=== PATIENT | female | born 1960 | race Caucasian/White ===

== ENCOUNTER → 2016-12-31 | Outpatient (CLI) | payer OTHER ==
[~2016-12-31] MED LIST: /CELE20CA OR; /PANT40TA PO; AMIT25TA2 OR; ARTHROTEC PO; CELE-19 PO; DICLOFENAC PO; DULO20CA OR; HYDR-3713 PO; HYDR7.5T38 PO; IBUP800T OR; LIDO5DIS TD; NABU500T OR; NAPR500T2 PO; OXAPROZIN PO; TRAM50TA2 PO; ULTRTA OR; VIACTIV CALCIUM OR; VITAMIN B COMPLE1 OR; VOLT1GEL EXT; XANA0.25 PO; omega 3 OR; vit c OR; vit d3 OR
--- NOTE | 2017-01-10 00:52 | ECWPNPC ---
PATIENT NAME: JOHNNY WEATHERS : 1960 GENDER: FEMALE VISIT DATE: 12/31/2016 DISCHARGE DATE: 12/31/16 0939 VISIT LOCKED DATE TIME: PHYSICIAN: RHEA LUCAS RESOURCE: RHEA LUCAS REASON FOR APPOINTMENT 1. FOLLOW UP HISTORY OF PRESENT ILLNESS HISTORY OF PRESENT ILLNESS: PAIN THE PATIENT DESCRIBES THE PAIN... THE PATIENT DESCRIBES THE PAIN... THE PATIENT DESCRIBES THE PAIN... HERE FOR ROUTINE F/U AND MANAGEMENT OF CHRONIC LBP. HISTORY OF WORK RELATED INJURY . CURRENTLY USING CYMBALTA 60MG DAILY. RARE USE OF HYDROCODONE 5/325 PRN FOR SEVERE PAIN. LAST USE OF HYDROCODONE LAST WEEK FOR SEVERE FLARE UP RIGHT LOW BACK.CONTINUES TO BENEFIT FROM LEFT SIJ INJECTION DONE IN JANUARY.RATING PAIN VAS 6/10.DIAGNOSED WITH LUPUS THIS PAST MARCH AND PLACED ON PREDNISONE 5MG DAILY.HAD TO STOP CELEBREX DUE TO GI UPSET WITH PREDNISONE. FALL RISK SCREENING: SCREENING :NO FALLS IN THE PAST YEAR CURRENT MEDICATIONS TAKING PROTONIX 40 MG TABLET DELAYED RELEASE 1 TABLET ORALLY ONCE A DAY TAKING VITAMIN B COMPLEX TABLET ORALLY DAILY TAKING OMEGA 3 1000 MG CAPSULE 1 CAPSULE ORALLY ONCE A DAY TAKING VITAMIN C 1000 MG TABLET 1 TABLET ORALLY ONCE A DAY TAKING PREDNISOLONE 5 MG TABLET ORALLY DAILY TAKING BUPROPION HCL 300 MG TABLET 1 TABLET ORALLY ONCE A DAY TAKING ALPRAZOLAM 0.25 MG TABLET 1 TABLET ORALLY PRN DAILY TAKING LIDOCAINE 5 % PATCH 1 PATCH TO INTACT SKIN REMOVE AFTER 12 HOURS EXTERNALLY ONCE A DAY ON 12H OFF 12H TAKING CYMBALTA 60 MG CAPSULE DELAYED RELEASE PARTICLES 1 CAPSULE ORALLY ONCE A DAY NOT-TAKING TURMERIC CURCUMIN CAPSULE 1000 MG ORALLY DAILY NOT-TAKING HYDROCODONE-ACETAMINOPHEN 5-325 MG TABLET 1 TABLET NEEDED ORALLY EVERY 6 HRS MDD3, NOTES: 01/18/16 1400 NOT-TAKING TUMERSAID 1000 MG TABLET 1 TAB(S) ORALLY DAILY MEDICATION LIST REVIEWED AND RECONCILED WITH THE PATIENT PAST MEDICAL HISTORY 2003 FALL RESULTING IN BACK AND RIGHT LEG PAIN ALLERGIES N.K.D.A. SOCIAL HISTORY GENERAL: PAIN CLINIC PFS, CLERGY, PUBLIC HEALTH REFERRALS CLERGY REFERRAL NEEDED?NO WAS THE PROVIDER NOTIFIED OF ANY PERTINENT INFO?NO PFS REFERRAL NEEDED?NO PUBLIC HEALTH REFERRAL NEEDED?NO PATIENT: ____. REVIEW OF SYSTEMS CONSTITUTIONAL: ANY CHANGE IN YOUR MEDICAL CONDITION? NO . CHILLS NO . FEVER NO . INFECTION: DO YOU HAVE NEW INFECTIONS? NO . DO YOU HAVE HISTORY OF MRSA? NO . MUSCULOSKELETAL: ANY NEW PATTERNS OF PAIN OR NUMBNESS? NO . GASTROENTEROLOGY: ANY NEW CHANGE IN BOWEL CONTROL? NO . GENITOURINARY: ANY NEW CHANGE IN BLADDER CONTROL? NO . IS THERE A CHANCE YOU COULD BE ? NO . HEMATOLOGY/LYMPH: DO YOU TAKE ANY BLOOD THINNERS? (FOR EXAMPLE- COUMADIN, PLAVIX, AGGRENOX, PLATEL, PRADAXA, OR XARELTO) NO . WHEN WAS YOUR LAST DOSE? DATE: TIME: . NEUROLOGY: HAVE YOU FALLEN IN THE PAST 6 MONTHS? NO . ANY NEW EXTREMITY NUMBNESS OR WEAKNESS? NO . CARDIOLOGY: DO YOU HAVE A PACEMAKER OR DEFIBRILLATOR? NO . RESPIRATORY: HAVE YOU BEEN SICK IN THE PAST WEEK? NO . FEVER NO . FLU LIKE SYMPTOMS? NO . COUGH NO . INTEGUMENTARY: DO YOU HAVE ANY RASHES OR OPEN SORES? NO . ALLERGIC/IMMUNO: ARE YOU ALLERGIC TO SHELLFISH OR IV DYE? NO . ANY NEW ALLERGIES? NO . PSYCHIATRIC: DO YOU HAVE THOUGHTS OF HURTING YOURSELF OR SOMEONE ELSE? NO . ARE YOU ABUSED, NEGLECTED, OR IN AN UNSAFE ENVIRONMENT? NO . ENDOCRINOLOGY: ARE YOU DIABETIC? NO . OTHER: DO YOU NEED ANY PRESCRIPTIONS? NO . IF YES, PLEASE LIST: ____ . ANY NEW PROBLEMS WITH YOUR MEDICATIONS? NO . WHEN DID YOU LAST EAT? ____ . WHEN DID YOU LAST DRINK? ____ . WHAT DID YOU LAST DRINK? ____ . NAME OF PERSON DRIVING YOU HOME? ____ . DO YOU HAVE ANY OTHER QUESTIONS OR CONCERNS NO . REVIEWED BY: PROVIDER: RHEA HERNANDEZ . VITAL SIGNS WT 130 LBS, HT 62 IN, BMI 23.77 INDEX, BP 164/93 MM HG, HR 97 /MIN, RR 16 /MIN, TEMP 98.7 F, OXYGEN SAT % 100:, NA INITIALS SC 09:09, REVIEWED BY: CS. EXAMINATION GENERAL EXAMINATION: LUNGS:LUNG SOUNDS ARE CLEAR. HEART:HEART RATE REGULAR. MUSCULOSKELETAL:*. MUSCULOSKELETAL:*, MUSCLE STRENGTH TESTING 5/5 BILATERAL, PALPATION: NEGATIVE FOR PAIN OVER L/S SPINE. NEGATIVE FOR PAIN OVER L/S PARSPINALS, NORMAL RANGE OF MOTION ALL JOINTS.INCREASE PAIN W EXTENSION OF SPINE.. DIAGNOSTIC: . DIAGNOSTIC:MRI-L/S SPINE-11/02/11-MULTI LEVEL DISC PROTRUSIONS AND FACET ARTHROPATHY.. ASSESSMENTS SACROILIITIS, NOT ELSEWHERE CLASSIFIED - M46.1 (PRIMARY) LUMBAR FACET ARTHROPATHY - M12.88 TREATMENT SACROILIITIS, NOT ELSEWHERE CLASSIFIED CONTINUE CYMBALTA CAPSULE DELAYED RELEASE PARTICLES, 60 MG, 1 CAPSULE, ORALLY, ONCE A DAY CONTINUE HYDROCODONE-ACETAMINOPHEN TABLET, 5-325 MG, 1 TABLET NEEDED, ORALLY, EVERY 6 HRS MDD3, NOTES: 01/18/16 1400 PROCEDURES PN WORKMANS' COMP OPINION IN YOUR OPINION, WAS THE INCIDENT THAT THE PATIENT DESCRIBED THE COMPETENT MEDICAL CAUSE OF THIS INJURY/ILLNESS? YES ARE THE PATIENT'S COMPLAINTS CONSISTENT WITH HIS/HER HISTORY OF THE INJURY/ILLNESS? YES IS THE PATIENT'S HISTORY OF THE INJURY/ILLNESS CONSISTENT WITH YOUR OBJECTIVE FINDING? YES WHAT IS THE PERCENTAGE OF TEMPORARY IMPAIRMENT? MODERATE TO MARKED = 66.7% IS THE PATIENT WORKING? NO DOCTOR ON SITE: VALE EVERETT MD PROCEDURE CODES FA211 ESTABILISHED PATIENT [facility] CHARGE DISPOSITION & COMMUNICATION FOLLOW UP F/U , 4 WEEKS ELECTRONICALLY SIGNED BY DAVID BELL ON 01/09/2017 AT 12:38 PM EDT DISCLAIMER : THIS IS A VISIT SUMMARY EXTRACTED FROM THE [employer] CHART. IT IS NOT A COPY OF THE [employer] PROGRESS NOTE. MTDD
== END ==
LOC: M PAIN 09:00
PROVIDERS: ATTEND Nurse Practitioner Family
DX: G89.29 Other chronic pain (principal); M46.1 Sacroiliitis, not elsewhere classified; M12.88 Other specific arthropathies, not elsewhere classified, other specified site; Z79.899 Other long term (current) drug therapy

== ENCOUNTER → 2017-01-31 | Outpatient (CLI) | payer OTHER ==
--- NOTE | 2017-02-14 00:47 | ECWPNPC ---
PATIENT NAME: JOHNNY WEATHERS : 1960 GENDER: FEMALE VISIT DATE: 01/31/2017 DISCHARGE DATE: 01/31/17 1345 VISIT LOCKED DATE TIME: PHYSICIAN: VALE MURPHY RESOURCE: VALE MURPHY REASON FOR APPOINTMENT 1. W/C BACK HISTORY OF PRESENT ILLNESS HISTORY OF PRESENT ILLNESS: PAIN THE PATIENT DESCRIBES THE PAIN... 56 YEAR OLD FEMALE PATIENT WITH HISTORY OF CHRONIC BACK PAIN. PATIENT DESCRIBES THE PAIN ACHING, TENDER, THROBBING, SORE, AND IT COMES AND GOES WITH A PAIN SCORE OF 6/10 ON TODAY'S VISIT. 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 PATIENT REPORTS THAT SHE HAS TRIED PHYSICAL THERAPY IN THE PAST AND IT HELPED A LITTLE BIT WITH THE PAIN. PATIENT DENIES HAVING ANY BACK SURGERIES. PATIENT REPORTS THAT STRETCHES IN THE MORNING AND HER CURRENT MEDICATION REGIMEN WITH INJECTION HELP TO MANAGE HER PAIN. PATIENT REPORTS OF SITTING TOO LONG AND WALKING FOR A LONG PERIOD OF TIME DOES INCREASE HER PAIN. PATIENT STATES THAT SOME NIGHT SHE HAS DIFFICULTIES SLEEPING AND STAYING ASLEEP AT NIGHT. PATIENT DENIES UNEXPLAINABLE WEIGHT LOSS, FEVER, CHILLS, NEW CHANGES ON HIS/HER URINARY OR BOWEL CONTROL. FALL RISK SCREENING: SCREENING :NO FALLS IN THE PAST YEAR CURRENT MEDICATIONS TAKING PROTONIX 40 MG TABLET DELAYED RELEASE 1 TABLET ORALLY ONCE A DAY TAKING VITAMIN B COMPLEX TABLET ORALLY DAILY TAKING OMEGA 3 1000 MG CAPSULE 1 CAPSULE ORALLY ONCE A DAY TAKING VITAMIN C 1000 MG TABLET 1 TABLET ORALLY ONCE A DAY TAKING PREDNISOLONE 5 MG TABLET ORALLY DAILY TAKING BUPROPION HCL 300 MG TABLET 1 TABLET ORALLY ONCE A DAY TAKING ALPRAZOLAM 0.25 MG TABLET 1 TABLET ORALLY PRN DAILY TAKING LIDOCAINE 5 % PATCH 1 PATCH TO INTACT SKIN REMOVE AFTER 12 HOURS EXTERNALLY ONCE A DAY ON 12H OFF 12H TAKING CYMBALTA 60 MG CAPSULE DELAYED RELEASE PARTICLES 1 CAPSULE ORALLY ONCE A DAY TAKING HYDROCODONE-ACETAMINOPHEN 5-325 MG TABLET 1 TABLET NEEDED ORALLY EVERY 6 HRS MDD3 NOT-TAKING TURMERIC CURCUMIN CAPSULE 1000 MG ORALLY DAILY NOT-TAKING TUMERSAID 1000 MG TABLET 1 TAB(S) ORALLY DAILY MEDICATION LIST REVIEWED AND RECONCILED WITH THE PATIENT PAST MEDICAL HISTORY 2003 FALL RESULTING IN BACK AND RIGHT LEG PAIN ALLERGIES N.K.D.A. SURGICAL HISTORY BLADDER SLING 2008 FAMILY HISTORY NO FAMILY HISTORY DOCUMENTED. SOCIAL HISTORY GENERAL: PAIN CLINIC PFS, CLERGY, PUBLIC HEALTH REFERRALS CLERGY REFERRAL NEEDED?NO WAS THE PROVIDER NOTIFIED OF ANY PERTINENT INFO?NO PFS REFERRAL NEEDED?NO PUBLIC HEALTH REFERRAL NEEDED?NO PATIENT: ____. HOSPITALIZATION/MAJOR DIAGNOSTIC PROCEDURE NO HOSPITALIZATION HISTORY. REVIEW OF SYSTEMS CONSTITUTIONAL: ANY CHANGE IN YOUR MEDICAL CONDITION? NO . CHILLS NO . FEVER NO . INFECTION: DO YOU HAVE NEW INFECTIONS? NO . DO YOU HAVE HISTORY OF MRSA? NO . MUSCULOSKELETAL: ANY NEW PATTERNS OF PAIN OR NUMBNESS? NO . GASTROENTEROLOGY: ANY NEW CHANGE IN BOWEL CONTROL? NO . GENITOURINARY: ANY NEW CHANGE IN BLADDER CONTROL? NO . IS THERE A CHANCE YOU COULD BE ? NO . HEMATOLOGY/LYMPH: DO YOU TAKE ANY BLOOD THINNERS? (FOR EXAMPLE- COUMADIN, PLAVIX, AGGRENOX, PLATEL, PRADAXA, OR XARELTO) NO . WHEN WAS YOUR LAST DOSE? DATE: TIME: . NEUROLOGY: HAVE YOU FALLEN IN THE PAST 6 MONTHS? NO . ANY NEW EXTREMITY NUMBNESS OR WEAKNESS? NO . CARDIOLOGY: DO YOU HAVE A PACEMAKER OR DEFIBRILLATOR? NO . RESPIRATORY: HAVE YOU BEEN SICK IN THE PAST WEEK? NO . FEVER NO . FLU LIKE SYMPTOMS? NO . COUGH NO . INTEGUMENTARY: DO YOU HAVE ANY RASHES OR OPEN SORES? NO . ALLERGIC/IMMUNO: ARE YOU ALLERGIC TO SHELLFISH OR IV DYE? NO . ANY NEW ALLERGIES? NO . PSYCHIATRIC: DO YOU HAVE THOUGHTS OF HURTING YOURSELF OR SOMEONE ELSE? NO . ARE YOU ABUSED, NEGLECTED, OR IN AN UNSAFE ENVIRONMENT? NO . ENDOCRINOLOGY: ARE YOU DIABETIC? NO . OTHER: DO YOU NEED ANY PRESCRIPTIONS? YES . IF YES, PLEASE LIST: HYDROCODONE . ANY NEW PROBLEMS WITH YOUR MEDICATIONS? NO . WHEN DID YOU LAST EAT? ____ . WHEN DID YOU LAST DRINK? ____ . WHAT DID YOU LAST DRINK? ____ . NAME OF PERSON DRIVING YOU HOME? ____ . DO YOU HAVE ANY OTHER QUESTIONS OR CONCERNS WOULD LIKE TO DISCUSS MEDICAL MARIJUANA . REVIEWED BY: PROVIDER: VALE MURPHY MD . VITAL SIGNS WT 138.4 LBS, HT 62 IN, BMI 25.31 INDEX, BP 138/81 MM HG, HR 97 /MIN, RR 16 /MIN, TEMP 98.0 F, OXYGEN SAT % 95%, NA INITIALS SC 12:49, REVIEWED BY: AD. EXAMINATION : PATIENT IS ALERT O X 3 AND COOPERATIVE. PATIENT IS ABLE TO FLEX HER BACK TO 80 DEGREES AND EXTEND TO 50 DEGREES WITH DIFFICULTIES. THERE IS TENDERNESS IN THE LOW BACK PARASPINAL MUSCLE GROUP NEAR THE SACROILIAC AREA. THERE IS VERY SUBTLE WEAKNESS IN THE RIGHT LEG. STRAIGHT LEG RAISING OF THE RIGHT LEG IS POSITIVE FOR PAIN AT 50 DEGREES. FABERE TEST IS POSITIVE ON THE RIGHT LEG. MRI OF THE LUMBAR SPINE DONE ON 01/13/2016 SHOWS MILD BULGING AND STENOSIS AT MULTIPLE LEVELS. ASSESSMENTS SACROILIITIS, NOT ELSEWHERE CLASSIFIED - M46.1 (PRIMARY) TREATMENT SACROILIITIS, NOT ELSEWHERE CLASSIFIED REFILL LIDOCAINE PATCH, 5 %, 1 TO 2 PATCH TO INTACT SKIN REMOVE AFTER 12 HOURS, EXTERNALLY, ONCE A DAY ON 12H OFF 12H, 30 DAY(S), 25, REFILLS 2 REFILL CYMBALTA CAPSULE DELAYED RELEASE PARTICLES, 60 MG, 1 CAPSULE, ORALLY, ONCE A DAY, 30 DAY(S), 30 CAPSULE, REFILLS 2 REFILL HYDROCODONE-ACETAMINOPHEN TABLET, 5-325 MG, 1 TABLET NEEDED, ORALLY, EVERY 6 HRS MDD2, 30 DAY(S), 30, REFILLS 0 NOTES: LUMBAR EPIDURAL INJECTION: YOUR PROCEDURE MATERIAL WAS PRINTED. CLINICAL NOTES: WE DISCUSSED SEVERAL ISSUES WITH MS. WEATHERS'S PAIN MANAGEMENT CASE. AT THIS TIME THE PATIENT WILL RECEIVE A REFILL OF LIDOCAINE PATCH, CYMBALTA, AND HYDROCODONE. PATIENT IS USING LIDOCAINE PATCH FOR NEUROPATHIC PAIN. CYMBALTA FOR NEUROPATHIC AND SKELETAL PAIN. HYDROCODONE FOR SOMATIC PAIN. PATIENT DID NOT BRING HER MEDICATIONS ON TODAY'S VISIT, BUT WAS ADVISED TO DO SO FOR EVERY FOLLOW UP VISIT WITH US. AFTER EXAMINING THE PATIENT AND REVIEWING THE MRI OF THE LUMBAR SPINE, PATIENT IS A GOOD CANDIDATE FOR A LUMBAR EPIDURAL INJECTION AT L4-L5. WE DISCUSSED THE RISK, BENEFITS, AND ALTERNATIVES AND THE PATIENT WANTS TO PROCEED FORWARD. PATIENT WILL BE BOOKED PENDING APPROVAL. UTOX DONE ON 07/20/2015 SHOWS CONSISTENT RESULTS. PATIENT WILL FOLLOW UP WITH ME IN A 6 WEEKS. INSTRUCTIONS WERE GIVEN, QUESTIONS WERE ANSWERED, PATIENT REPORTS UNDERSTANDING AND AGREES WITH THE PLAN. I, CHANDNI LOUISE, DOCUMENTED THE ABOVE INFORMATION ACTING A SCRIBE FOR DR. MURPHY. I HAVE REVIEWED THE ABOVE DOCUMENT, WRITTEN BY CHANDNI LOYA AND I VERIFY THAT IT IS ACCURATE. PROCEDURES PN WORKMANS' COMP OPINION IN YOUR OPINION, WAS THE INCIDENT THAT THE PATIENT DESCRIBED THE COMPETENT MEDICAL CAUSE OF THIS INJURY/ILLNESS? YES ARE THE PATIENT'S COMPLAINTS CONSISTENT WITH HIS/HER HISTORY OF THE INJURY/ILLNESS? YES IS THE PATIENT'S HISTORY OF THE INJURY/ILLNESS CONSISTENT WITH YOUR OBJECTIVE FINDING? YES WHAT IS THE PERCENTAGE OF TEMPORARY IMPAIRMENT? MODERATE TO MARKED = 66.7% IS THE PATIENT WORKING? NO DOCTOR ON SITE: VALE EVERETT MD PROCEDURE CODES FA211 ESTABILISHED PATIENT [facility] CHARGE G8730 PAIN ASSESS POS TOOL F/U PLAN DOC G8427 DOC MEDS VERIFIED W/PT OR RE DISPOSITION & COMMUNICATION FOLLOW UP 6 WEEKS ELECTRONICALLY SIGNED BY VALE MURPHY MD ON 02/12/2017 AT 06:02 PM EDT DISCLAIMER : THIS IS A VISIT SUMMARY EXTRACTED FROM THE [employer] CHART. IT IS NOT A COPY OF THE [employer] PROGRESS NOTE. JANE
== END | disposition home or self-care (01) ==
LOC: M PAIN 12:40
PROVIDERS: ATTEND Anesthesiology
DX: G89.29 Other chronic pain (principal); M46.1 Sacroiliitis, not elsewhere classified; Z79.899 Other long term (current) drug therapy

== ENCOUNTER → 2017-04-03 | Outpatient (CLI) | payer OTHER ==
[~2017-04-03] MED LIST changes: -CELE-19 PO; +CELE1CAP4 PO; +ISOVUE-M 300 61% 15ML VIAL (Q9967) As Ordered ONE; +LIDOCAINE 1% SDV INJ 30 ML VIAL As Ordered ONE; -NAPR500T2 PO; +NAPR500T3 PO; +diazePAM 5 MG TAB As Ordered ONE; +methylPREDNISolone SUSP 40 MG/ML (DEPO-medrol) VIAL (J1030) As Ordered ONE; +oxyCODONE 5MG TAB As Ordered ONE
--- NOTE | 2017-04-03 12:51 | REP ---
Partial lumbar spine series: Three views . History: Injection procedure for pain. 10 seconds of fluoroscopy time is reported. Findings: A sequence of three fluoroscopically obtained last image hold procedural spot radiographs of the lumbar spine document needle position and contrast injection associated with injection procedure. Signed by Eugene Leone MD 04/03/2017 12:43 P
--- NOTE | 2017-04-17 00:26 | ECWPNPC ---
PATIENT NAME: JOHNNY WEATHERS : 1960 GENDER: FEMALE VISIT DATE: 04/03/2017 DISCHARGE DATE: 04/03/17 1023 VISIT LOCKED DATE TIME: PHYSICIAN: VALE MURPHY RESOURCE: VALE MURPHY REASON FOR APPOINTMENT 1. LE, L4-5 HISTORY OF PRESENT ILLNESS HISTORY OF PRESENT ILLNESS: PAIN THE PATIENT DESCRIBES THE PAIN... FALL RISK SCREENING: SCREENING :NO FALLS IN THE PAST YEAR CURRENT MEDICATIONS TAKING PROTONIX 40 MG TABLET DELAYED RELEASE 1 TABLET ORALLY ONCE A DAY, NOTES: 04/02/17829 TAKING VITAMIN B COMPLEX TABLET ORALLY DAILY, NOTES: 04/02/17829 TAKING OMEGA 3 1000 MG CAPSULE 1 CAPSULE ORALLY ONCE A DAY, NOTES: 04/02/17829 TAKING VITAMIN C 1000 MG TABLET 1 TABLET ORALLY ONCE A DAY, NOTES: 04/02/17829 TAKING PREDNISOLONE 5 MG TABLET ORALLY DAILY, NOTES: 04/02/17829 TAKING BUPROPION HCL 300 MG TABLET 1 TABLET ORALLY ONCE A DAY, NOTES: 04/02/17829 TAKING ALPRAZOLAM 0.25 MG TABLET 1 TABLET ORALLY PRN DAILY, NOTES: 1 WEEK AGO TAKING LIDOCAINE 5 % PATCH 1 TO 2 PATCH TO INTACT SKIN REMOVE AFTER 12 HOURS EXTERNALLY ONCE A DAY ON 12H OFF 12H, NOTES: 04/01/17 TAKING CYMBALTA 60 MG CAPSULE DELAYED RELEASE PARTICLES 1 CAPSULE ORALLY ONCE A DAY, NOTES: 04/02/17829 TAKING HYDROCODONE-ACETAMINOPHEN 5-325 MG TABLET 1 TABLET NEEDED ORALLY EVERY 6 HRS MDD2, NOTES: 04/02/17 1830 NOT-TAKING TURMERIC CURCUMIN CAPSULE 1000 MG ORALLY DAILY NOT-TAKING TUMERSAID 1000 MG TABLET 1 TAB(S) ORALLY DAILY MEDICATION LIST REVIEWED AND RECONCILED WITH THE PATIENT PAST MEDICAL HISTORY 2004 FALL RESULTING IN BACK AND RIGHT LEG PAIN LUPUS ALLERGIES N.K.D.A. REVIEW OF SYSTEMS REVIEWED BY: PROVIDER: . CONSTITUTIONAL: ANY CHANGE IN YOUR MEDICAL CONDITION? NO . CHILLS NO . FEVER NO . INFECTION: DO YOU HAVE NEW INFECTIONS? NO . DO YOU HAVE HISTORY OF MRSA? NO . MUSCULOSKELETAL: ANY NEW PATTERNS OF PAIN OR NUMBNESS? NO . GASTROENTEROLOGY: ANY NEW CHANGE IN BOWEL CONTROL? NO . GENITOURINARY: ANY NEW CHANGE IN BLADDER CONTROL? NO . IS THERE A CHANCE YOU COULD BE ? NO . HEMATOLOGY/LYMPH: DO YOU TAKE ANY BLOOD THINNERS? (FOR EXAMPLE- COUMADIN, PLAVIX, AGGRENOX, PLATEL, PRADAXA, OR XARELTO) NO . WHEN WAS YOUR LAST DOSE? DATE: TIME: . NEUROLOGY: HAVE YOU FALLEN IN THE PAST 6 MONTHS? NO . ANY NEW EXTREMITY NUMBNESS OR WEAKNESS? NO . CARDIOLOGY: DO YOU HAVE A PACEMAKER OR DEFIBRILLATOR? NO . RESPIRATORY: HAVE YOU BEEN SICK IN THE PAST WEEK? NO . FEVER NO . FLU LIKE SYMPTOMS? NO . COUGH NO . INTEGUMENTARY: DO YOU HAVE ANY RASHES OR OPEN SORES? NO . ALLERGIC/IMMUNO: ARE YOU ALLERGIC TO SHELLFISH OR IV DYE? NO . ANY NEW ALLERGIES? NO . PSYCHIATRIC: DO YOU HAVE THOUGHTS OF HURTING YOURSELF OR SOMEONE ELSE? NO . ARE YOU ABUSED, NEGLECTED, OR IN AN UNSAFE ENVIRONMENT? NO . ENDOCRINOLOGY: ARE YOU DIABETIC? NO . OTHER: DO YOU NEED ANY PRESCRIPTIONS? NO . IF YES, PLEASE LIST: ____ . ANY NEW PROBLEMS WITH YOUR MEDICATIONS? NO . WHEN DID YOU LAST EAT? 04/02/17 . WHEN DID YOU LAST DRINK? 04/02/172129 . WHAT DID YOU LAST DRINK? WATER . NAME OF PERSON DRIVING YOU HOME? KENAN GLORIA . DO YOU HAVE ANY OTHER QUESTIONS OR CONCERNS NO . VITAL SIGNS WT 138.4 LBS, HT 62 IN, BMI 25.31 INDEX, BP 134/82 MM HG, HR 95 /MIN, RR 16 /MIN, TEMP 99.0 F, OXYGEN SAT % 97%, NA INITIALS SC 08:42, REVIEWED BY: AD. ASSESSMENTS INTERVERTEBRAL DISC DISORDERS WITH RADICULOPATHY, LUMBAR REGION - M51.16 (PRIMARY) PROCEDURES PRE PROCEDURE DIAGNOSIS LUMBAR DISC DISORDER WITH RADICULOPATHY POST PROCEDURE DIAGNOSIS LUMBAR DISC DISORDER WITH RADICULOPATHY PROCEDURE LUMBAR EPIDURAL STEROID INJECTION UNDER FLUOROSCOPIC GUIDANCE SURGEON DR. VALE MURPHY INSULATION CUPOLA OPERATOR NONE ANESTHESIA LOCAL PRE PROCEDURE NOTE THE PATIENT HAS A HISTORY OF CHRONIC LOW BACK PAIN. I EVALUATE THE PATIENT AND REVIEWED THE CHART. I WENT OVER THE RISKS, ALTERNATIVES, AND BENEFITS ASSOCIATED WITH THIS PROCEDURE. THE PATIENT WOULD LIKE TO PROCEED AND GIVE CONSENT TO PERFORMED THE PROCEDURE. THE PATIENT DENIES UNEXPLAINABLE WEIGHT LOSS, FEVER, CHILLS, OR NEW CHANGES IN URINARY OR BOWEL CONTROL. DESCRIPTION OF PROCEDURE THE PATIENT WAS BROUGHT TO THE PROCEDURE ROOM AND PLACED IN THE PRONE POSITION. THE LUMBOSACRAL AREA WAS CLEANED WITH BETADINE SOLUTION AND DRAPED ASEPTICALLY. THE PROCEDURE WAS DONE UNDER STERILE CONDITIONS. I CHECKED LATERALITY AND THE LEVEL WHERE THE PROCEDURE WAS GOING TO BE PERFORMED WITH THE PATIENT AND THE SUPPORTING STAFF AT THE MOMENT OF THE TIME OUT IN THE PROCEDURE ROOM. UNDER FLUOROSCOPIC GUIDANCE, THE TARGET POINT WAS SELECTED AT THE INTERLAMINAR LEVEL OF L4-L5. LIDOCAINE WAS USED TO NUMB THE SKIN AND THE SUBCUTANEOUS TISSUE BELOW IT. EPIDURAL TUOHY NEEDLE, 17-GAUGE, WAS ADVANCED UNDER FLUOROSCOPIC GUIDANCE AND FOLLOWING PATIENT FEEDBACK UNTIL THE EPIDURAL SPACE WAS REACHED, 7 CM DEEP INTO THE SKIN BY THE LOSS OF RESISTANCE TECHNIQUE. ISOVUE M DYE 30%, 0.25 ML, WAS INJECTED SHOWING ADEQUATE SPREAD OF THE DYE. THEN, A SOLUTION OF 3 ML OF NORMAL SALINE WITH DEPO-MEDROL 60 MG WAS INJECTED SLOWLY FOLLOWING PATIENT FEEDBACK. THERE WAS NO EVIDENCE OF BLOOD, PARESTHESIA OR CEREBROSPINAL FLUID DURING THE PROCEDURE. THE PATIENT WAS SENT TO THE RECOVERY ROOM. THE PATIENT WAS MOVING THE EXTREMITIES AND DOING WELL. THERE WAS NO COMPLICATION DURING THE PROCEDURE. FLUOROSCOPY TIME WAS 10 SECONDS. POST PROCEDURE NOTE THE PATIENT WILL BE SEEN IN A FOLLOW UP IN THE NEXT FEW WEEKS. INSTRUCTIONS WERE GIVEN, QUESTIONS WERE ANSWERED, AND THE PATIENT EXPRESSED UNDERSTANDING AND AGREES WITH THE PLAN. I, DEMARCUS ZHENG, DOCUMENTED THE ABOVE INFORMATION ACTING A SCRIBE FOR DR. MURPHY. I HAVE REVIEWED THE ABOVE DOCUMENT, WRITTEN BY DEMARCUS LOYA AND I VERIFY THAT IT IS ACCURATE PN WORKMANS' COMP OPINION IN YOUR OPINION, WAS THE INCIDENT THAT THE PATIENT DESCRIBED THE COMPETENT MEDICAL CAUSE OF THIS INJURY/ILLNESS? YES ARE THE PATIENT'S COMPLAINTS CONSISTENT WITH HIS/HER HISTORY OF THE INJURY/ILLNESS? YES IS THE PATIENT'S HISTORY OF THE INJURY/ILLNESS CONSISTENT WITH YOUR OBJECTIVE FINDING? YES WHAT IS THE PERCENTAGE OF TEMPORARY IMPAIRMENT? MODERATE TO MARKED = 66.7% IS THE PATIENT WORKING? NO DOCTOR ON SITE: VALE EVERETT MD DIAGNOSTIC IMAGING [facility] FLUORO GUIDE SPINE INJECTION (PAIN)[id number] PROCEDURE CODES 40415 LUMBAR/SACRAL W/ IMAGING 6045F RADXPS IN END [id number] PXD DISPOSITION & COMMUNICATION FOLLOW UP 3 WEEKS ELECTRONICALLY SIGNED BY VALE MURPHY MD ON 04/16/2017 AT 12:35 PM EDT DISCLAIMER : THIS IS A VISIT SUMMARY EXTRACTED FROM THE [employer] CHART. IT IS NOT A COPY OF THE [employer] PROGRESS NOTE. JANE
--- NOTE | 2017-04-17 00:26 | ECWPNPC ---
PATIENT NAME: JOHNNY WEATHERS : 1960 GENDER: FEMALE VISIT DATE: 04/03/2017 DISCHARGE DATE: 04/03/17 1023 VISIT LOCKED DATE TIME: PHYSICIAN: VALE MURPHY RESOURCE: VALE MURPHY REASON FOR APPOINTMENT 1. LE, L4-5 HISTORY OF PRESENT ILLNESS HISTORY OF PRESENT ILLNESS: PAIN THE PATIENT DESCRIBES THE PAIN... FALL RISK SCREENING: SCREENING :NO FALLS IN THE PAST YEAR CURRENT MEDICATIONS TAKING PROTONIX 40 MG TABLET DELAYED RELEASE 1 TABLET ORALLY ONCE A DAY, NOTES: 04/02/17829 TAKING VITAMIN B COMPLEX TABLET ORALLY DAILY, NOTES: 04/02/17829 TAKING OMEGA 3 1000 MG CAPSULE 1 CAPSULE ORALLY ONCE A DAY, NOTES: 04/02/17829 TAKING VITAMIN C 1000 MG TABLET 1 TABLET ORALLY ONCE A DAY, NOTES: 04/02/17829 TAKING PREDNISOLONE 5 MG TABLET ORALLY DAILY, NOTES: 04/02/17829 TAKING BUPROPION HCL 300 MG TABLET 1 TABLET ORALLY ONCE A DAY, NOTES: 04/02/17829 TAKING ALPRAZOLAM 0.25 MG TABLET 1 TABLET ORALLY PRN DAILY, NOTES: 1 WEEK AGO TAKING LIDOCAINE 5 % PATCH 1 TO 2 PATCH TO INTACT SKIN REMOVE AFTER 12 HOURS EXTERNALLY ONCE A DAY ON 12H OFF 12H, NOTES: 04/01/17 TAKING CYMBALTA 60 MG CAPSULE DELAYED RELEASE PARTICLES 1 CAPSULE ORALLY ONCE A DAY, NOTES: 04/02/17829 TAKING HYDROCODONE-ACETAMINOPHEN 5-325 MG TABLET 1 TABLET NEEDED ORALLY EVERY 6 HRS MDD2, NOTES: 04/02/17 1830 NOT-TAKING TURMERIC CURCUMIN CAPSULE 1000 MG ORALLY DAILY NOT-TAKING TUMERSAID 1000 MG TABLET 1 TAB(S) ORALLY DAILY MEDICATION LIST REVIEWED AND RECONCILED WITH THE PATIENT PAST MEDICAL HISTORY 2004 FALL RESULTING IN BACK AND RIGHT LEG PAIN LUPUS ALLERGIES N.K.D.A. REVIEW OF SYSTEMS REVIEWED BY: PROVIDER: . CONSTITUTIONAL: ANY CHANGE IN YOUR MEDICAL CONDITION? NO . CHILLS NO . FEVER NO . INFECTION: DO YOU HAVE NEW INFECTIONS? NO . DO YOU HAVE HISTORY OF MRSA? NO . MUSCULOSKELETAL: ANY NEW PATTERNS OF PAIN OR NUMBNESS? NO . GASTROENTEROLOGY: ANY NEW CHANGE IN BOWEL CONTROL? NO . GENITOURINARY: ANY NEW CHANGE IN BLADDER CONTROL? NO . IS THERE A CHANCE YOU COULD BE ? NO . HEMATOLOGY/LYMPH: DO YOU TAKE ANY BLOOD THINNERS? (FOR EXAMPLE- COUMADIN, PLAVIX, AGGRENOX, PLATEL, PRADAXA, OR XARELTO) NO . WHEN WAS YOUR LAST DOSE? DATE: TIME: . NEUROLOGY: HAVE YOU FALLEN IN THE PAST 6 MONTHS? NO . ANY NEW EXTREMITY NUMBNESS OR WEAKNESS? NO . CARDIOLOGY: DO YOU HAVE A PACEMAKER OR DEFIBRILLATOR? NO . RESPIRATORY: HAVE YOU BEEN SICK IN THE PAST WEEK? NO . FEVER NO . FLU LIKE SYMPTOMS? NO . COUGH NO . INTEGUMENTARY: DO YOU HAVE ANY RASHES OR OPEN SORES? NO . ALLERGIC/IMMUNO: ARE YOU ALLERGIC TO SHELLFISH OR IV DYE? NO . ANY NEW ALLERGIES? NO . PSYCHIATRIC: DO YOU HAVE THOUGHTS OF HURTING YOURSELF OR SOMEONE ELSE? NO . ARE YOU ABUSED, NEGLECTED, OR IN AN UNSAFE ENVIRONMENT? NO . ENDOCRINOLOGY: ARE YOU DIABETIC? NO . OTHER: DO YOU NEED ANY PRESCRIPTIONS? NO . IF YES, PLEASE LIST: ____ . ANY NEW PROBLEMS WITH YOUR MEDICATIONS? NO . WHEN DID YOU LAST EAT? 04/02/17 . WHEN DID YOU LAST DRINK? 04/02/172129 . WHAT DID YOU LAST DRINK? WATER . NAME OF PERSON DRIVING YOU HOME? KENAN GLORIA . DO YOU HAVE ANY OTHER QUESTIONS OR CONCERNS NO . VITAL SIGNS WT 138.4 LBS, HT 62 IN, BMI 25.31 INDEX, BP 134/82 MM HG, HR 95 /MIN, RR 16 /MIN, TEMP 99.0 F, OXYGEN SAT % 97%, NA INITIALS SC 08:42, REVIEWED BY: AD. ASSESSMENTS INTERVERTEBRAL DISC DISORDERS WITH RADICULOPATHY, LUMBAR REGION - M51.16 (PRIMARY) PROCEDURES PRE PROCEDURE DIAGNOSIS LUMBAR DISC DISORDER WITH RADICULOPATHY POST PROCEDURE DIAGNOSIS LUMBAR DISC DISORDER WITH RADICULOPATHY PROCEDURE LUMBAR EPIDURAL STEROID INJECTION UNDER FLUOROSCOPIC GUIDANCE SURGEON DR. VALE MURPHY PAINTER SIGN MAINTENANCE NONE ANESTHESIA LOCAL PRE PROCEDURE NOTE THE PATIENT HAS A HISTORY OF CHRONIC LOW BACK PAIN. I EVALUATE THE PATIENT AND REVIEWED THE CHART. I WENT OVER THE RISKS, ALTERNATIVES, AND BENEFITS ASSOCIATED WITH THIS PROCEDURE. THE PATIENT WOULD LIKE TO PROCEED AND GIVE CONSENT TO PERFORMED THE PROCEDURE. THE PATIENT DENIES UNEXPLAINABLE WEIGHT LOSS, FEVER, CHILLS, OR NEW CHANGES IN URINARY OR BOWEL CONTROL. DESCRIPTION OF PROCEDURE THE PATIENT WAS BROUGHT TO THE PROCEDURE ROOM AND PLACED IN THE PRONE POSITION. THE LUMBOSACRAL AREA WAS CLEANED WITH BETADINE SOLUTION AND DRAPED ASEPTICALLY. THE PROCEDURE WAS DONE UNDER STERILE CONDITIONS. I CHECKED LATERALITY AND THE LEVEL WHERE THE PROCEDURE WAS GOING TO BE PERFORMED WITH THE PATIENT AND THE SUPPORTING STAFF AT THE MOMENT OF THE TIME OUT IN THE PROCEDURE ROOM. UNDER FLUOROSCOPIC GUIDANCE, THE TARGET POINT WAS SELECTED AT THE INTERLAMINAR LEVEL OF L4-L5. LIDOCAINE WAS USED TO NUMB THE SKIN AND THE SUBCUTANEOUS TISSUE BELOW IT. EPIDURAL TUOHY NEEDLE, 17-GAUGE, WAS ADVANCED UNDER FLUOROSCOPIC GUIDANCE AND FOLLOWING PATIENT FEEDBACK UNTIL THE EPIDURAL SPACE WAS REACHED, 7 CM DEEP INTO THE SKIN BY THE LOSS OF RESISTANCE TECHNIQUE. ISOVUE M DYE 30%, 0.25 ML, WAS INJECTED SHOWING ADEQUATE SPREAD OF THE DYE. THEN, A SOLUTION OF 3 ML OF NORMAL SALINE WITH DEPO-MEDROL 60 MG WAS INJECTED SLOWLY FOLLOWING PATIENT FEEDBACK. THERE WAS NO EVIDENCE OF BLOOD, PARESTHESIA OR CEREBROSPINAL FLUID DURING THE PROCEDURE. THE PATIENT WAS SENT TO THE RECOVERY ROOM. THE PATIENT WAS MOVING THE EXTREMITIES AND DOING WELL. THERE WAS NO COMPLICATION DURING THE PROCEDURE. FLUOROSCOPY TIME WAS 10 SECONDS. POST PROCEDURE NOTE THE PATIENT WILL BE SEEN IN A FOLLOW UP IN THE NEXT FEW WEEKS. INSTRUCTIONS WERE GIVEN, QUESTIONS WERE ANSWERED, AND THE PATIENT EXPRESSED UNDERSTANDING AND AGREES WITH THE PLAN. I, DEMARCUS ZHENG, DOCUMENTED THE ABOVE INFORMATION ACTING A SCRIBE FOR DR. MURPHY. I HAVE REVIEWED THE ABOVE DOCUMENT, WRITTEN BY DEMARCUS LOYA AND I VERIFY THAT IT IS ACCURATE PN WORKMANS' COMP OPINION IN YOUR OPINION, WAS THE INCIDENT THAT THE PATIENT DESCRIBED THE COMPETENT MEDICAL CAUSE OF THIS INJURY/ILLNESS? YES ARE THE PATIENT'S COMPLAINTS CONSISTENT WITH HIS/HER HISTORY OF THE INJURY/ILLNESS? YES IS THE PATIENT'S HISTORY OF THE INJURY/ILLNESS CONSISTENT WITH YOUR OBJECTIVE FINDING? YES WHAT IS THE PERCENTAGE OF TEMPORARY IMPAIRMENT? MODERATE TO MARKED = 66.7% IS THE PATIENT WORKING? NO DOCTOR ON SITE: VALE EVERETT MD DIAGNOSTIC IMAGING [facility] FLUORO GUIDE SPINE INJECTION (PAIN)[id number] PROCEDURE CODES 15085 LUMBAR/SACRAL W/ IMAGING 6045F RADXPS IN END [id number] PXD DISPOSITION & COMMUNICATION FOLLOW UP 3 WEEKS ELECTRONICALLY SIGNED BY VALE MURPHY MD ON 04/16/2017 AT 12:35 PM EDT DISCLAIMER : THIS IS A VISIT SUMMARY EXTRACTED FROM THE [employer] CHART. IT IS NOT A COPY OF THE [employer] PROGRESS NOTE. JANE
== END ==
LOC: M PAIN 08:40
PROVIDERS: ATTEND Anesthesiology
DX: G89.29 Other chronic pain (principal); M51.16 Intervertebral disc disorders with radiculopathy, lumbar region; M32.9 Systemic lupus erythematosus, unspecified; Z79.891 Long term (current) use of opiate analgesic; Z79.899 Other long term (current) drug therapy
CPT/HCPCS: 62323; J1030; Q9967

== ENCOUNTER → 2017-04-19 | Outpatient (CLI) | payer OTHER ==
[~2017-04-19] MED LIST changes: -ISOVUE-M 300 61% 15ML VIAL (Q9967) As Ordered ONE; -LIDOCAINE 1% SDV INJ 30 ML VIAL As Ordered ONE; -diazePAM 5 MG TAB As Ordered ONE; -methylPREDNISolone SUSP 40 MG/ML (DEPO-medrol) VIAL (J1030) As Ordered ONE; -oxyCODONE 5MG TAB As Ordered ONE
--- NOTE | 2017-05-07 01:03 | ECWPNPC ---
PATIENT NAME: JOHNNY WEATHERS : 1960 GENDER: FEMALE VISIT DATE: 04/19/2017 DISCHARGE DATE: 04/19/17 1008 VISIT LOCKED DATE TIME: PHYSICIAN: VALE MURPHY RESOURCE: VALE MURPHY REASON FOR APPOINTMENT 1. W/C BACK PAIN HISTORY OF PRESENT ILLNESS HISTORY OF PRESENT ILLNESS: PAIN THE PATIENT DESCRIBES THE PAIN... 56 YEAR OLD FEMALE PATIENT WITH HISTORY OF CHRONIC LOW BACK PAIN. PATIENT DESCRIBES THE PAIN ACHING, TENDER, SORE, WITH THE PAIN COMING AND GOING WITH FA PAIN SCORE OF 5/10. PATIENT RECEIVED A LUMBAR EPIDURAL ON 04/03/17 AND REPORTS HAVING OVER 50% RELIEF FROM THE INJECTION SINCE THE INJECTION WITH INCREASED MOBILITY AND FUNCTIONALITY. PATIENT REPORTS USING LESS MEDICATIONS DUE TO THE PAIN RELIEF. 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 PATIENT REPORTS THAT SHE HAS TRIED PHYSICAL THERAPY IN THE PAST AND IT HELPED A LITTLE BIT WITH THE PAIN. PATIENT DENIES HAVING ANY BACK SURGERIES. PATIENT REPORTS THAT STRETCHES IN THE MORNING AND HER CURRENT MEDICATION REGIMEN WITH INJECTION HELP TO MANAGE HER PAIN. PATIENT REPORTS OF SITTING TOO LONG AND WALKING FOR A LONG PERIOD OF TIME DOES INCREASE HER PAIN. PATIENT STATES THAT SOME NIGHT SHE HAS DIFFICULTIES SLEEPING AND STAYING ASLEEP AT NIGHT. PATIENT DENIES UNEXPLAINABLE WEIGHT LOSS, FEVER, CHILLS, NEW CHANGES ON HIS/HER URINARY OR BOWEL CONTROL. FALL RISK SCREENING: SCREENING :NO FALLS IN THE PAST YEAR CURRENT MEDICATIONS TAKING PROTONIX 40 MG TABLET DELAYED RELEASE 1 TABLET ORALLY ONCE A DAY TAKING VITAMIN B COMPLEX TABLET ORALLY DAILY TAKING OMEGA 3 1000 MG CAPSULE 1 CAPSULE ORALLY ONCE A DAY TAKING VITAMIN C 1000 MG TABLET 1 TABLET ORALLY ONCE A DAY TAKING PREDNISOLONE 5 MG TABLET ORALLY DAILY TAKING BUPROPION HCL 300 MG TABLET 1 TABLET ORALLY ONCE A DAY TAKING ALPRAZOLAM 0.25 MG TABLET 1 TABLET ORALLY PRN DAILY TAKING LIDOCAINE 5 % PATCH 1 TO 2 PATCH TO INTACT SKIN REMOVE AFTER 12 HOURS EXTERNALLY ONCE A DAY ON 12H OFF 12H TAKING CYMBALTA 60 MG CAPSULE DELAYED RELEASE PARTICLES 1 CAPSULE ORALLY ONCE A DAY TAKING HYDROCODONE-ACETAMINOPHEN 5-325 MG TABLET 1 TABLET NEEDED ORALLY EVERY 6 HRS MDD2 NOT-TAKING TURMERIC CURCUMIN CAPSULE 1000 MG ORALLY DAILY NOT-TAKING TUMERSAID 1000 MG TABLET 1 TAB(S) ORALLY DAILY MEDICATION LIST REVIEWED AND RECONCILED WITH THE PATIENT PAST MEDICAL HISTORY 2004 FALL RESULTING IN BACK AND RIGHT LEG PAIN LUPUS ALLERGIES N.K.D.A. REVIEW OF SYSTEMS REVIEWED BY: PROVIDER: VALE MURPHY MD . CONSTITUTIONAL: ANY CHANGE IN YOUR MEDICAL CONDITION? NO . CHILLS NO . FEVER NO . INFECTION: DO YOU HAVE NEW INFECTIONS? NO . DO YOU HAVE HISTORY OF MRSA? NO . MUSCULOSKELETAL: ANY NEW PATTERNS OF PAIN OR NUMBNESS? NO . GASTROENTEROLOGY: ANY NEW CHANGE IN BOWEL CONTROL? NO . GENITOURINARY: ANY NEW CHANGE IN BLADDER CONTROL? NO . IS THERE A CHANCE YOU COULD BE ? NO . HEMATOLOGY/LYMPH: DO YOU TAKE ANY BLOOD THINNERS? (FOR EXAMPLE- COUMADIN, PLAVIX, AGGRENOX, PLATEL, PRADAXA, OR XARELTO) NO . WHEN WAS YOUR LAST DOSE? DATE: TIME: . NEUROLOGY: HAVE YOU FALLEN IN THE PAST 6 MONTHS? NO . ANY NEW EXTREMITY NUMBNESS OR WEAKNESS? NO . CARDIOLOGY: DO YOU HAVE A PACEMAKER OR DEFIBRILLATOR? NO . RESPIRATORY: HAVE YOU BEEN SICK IN THE PAST WEEK? NO . FEVER NO . FLU LIKE SYMPTOMS? NO . COUGH NO . INTEGUMENTARY: DO YOU HAVE ANY RASHES OR OPEN SORES? NO . ALLERGIC/IMMUNO: ARE YOU ALLERGIC TO SHELLFISH OR IV DYE? NO . ANY NEW ALLERGIES? NO . PSYCHIATRIC: DO YOU HAVE THOUGHTS OF HURTING YOURSELF OR SOMEONE ELSE? NO . ARE YOU ABUSED, NEGLECTED, OR IN AN UNSAFE ENVIRONMENT? NO . ENDOCRINOLOGY: ARE YOU DIABETIC? NO . OTHER: DO YOU NEED ANY PRESCRIPTIONS? YES . IF YES, PLEASE LIST: DULOXETINE, HYDROCODONE . ANY NEW PROBLEMS WITH YOUR MEDICATIONS? NO . WHEN DID YOU LAST EAT? ____ . WHEN DID YOU LAST DRINK? ____ . WHAT DID YOU LAST DRINK? ____ . NAME OF PERSON DRIVING YOU HOME? ____ . DO YOU HAVE ANY OTHER QUESTIONS OR CONCERNS NO . VITAL SIGNS WT 139.6 LBS, HT 62 IN, BMI 25.53 INDEX, BP 127/78 MM HG, HR 84 /MIN, RR 16 /MIN, TEMP 97.6 F, OXYGEN SAT % 99%, NA INITIALS SC 09:04, REVIEWED BY: NL. EXAMINATION : PATIENT IS ALERT O X 3 AND COOPERATIVE. PATIENT IS ABLE TO FLEX HER BACK TO 80 DEGREES AND EXTEND TO 50 DEGREES WITH DIFFICULTIES. THERE IS TENDERNESS IN THE LOW BACK PARASPINAL MUSCLE GROUP NEAR THE SACROILIAC AREA. THERE IS VERY SUBTLE WEAKNESS IN THE RIGHT LEG. STRAIGHT LEG RAISING OF THE RIGHT LEG IS POSITIVE FOR PAIN AT 50 DEGREES. FABERE TEST IS POSITIVE ON THE RIGHT LEG. MRI OF THE LUMBAR SPINE DONE ON 01/13/2016 SHOWS MILD BULGING AND STENOSIS AT MULTIPLE LEVELS. ASSESSMENTS INTERVERTEBRAL DISC DISORDERS WITH RADICULOPATHY, LUMBAR REGION - M51.16 (PRIMARY) SACROILIITIS, NOT ELSEWHERE CLASSIFIED - M46.1 INTERVERTEBRAL DISC DISORDERS WITH RADICULOPATHY, LUMBOSACRAL REGION - M51.17 TREATMENT INTERVERTEBRAL DISC DISORDERS WITH RADICULOPATHY, LUMBAR REGION NOTES: WE DISCUSSED SEVERAL ISSUES WITH MS. WEATHERS'S PAIN MANAGEMENT CASE. AT THIS TIME THE PATIENT WILL RECEIVE A REFILL OF LIDOCAINE PATCH, CYMBALTA, AND HYDROCODONE. PATIENT IS USING LIDOCAINE PATCH FOR NEUROPATHIC PAIN. CYMBALTA FOR NEUROPATHIC AND SKELETAL PAIN. HYDROCODONE FOR SOMATIC PAIN. PATIENT BROUGHT MEDICATIONS TO TODAY'S VISIT IN THEIR ORIGINAL BOTTLES. PATIENT DENIES ABUSE OF ANY MEDICATION, DENIES USE OF ILLEGAL SUBSTANCES, AND STATES SHE IS ONLY USING THE MEDICATION FOR PAIN MANAGEMENT. URINE TOXICOLOGY REPORT DONE ON 07/20/15 SHOWS CONSISTENT RESULTS WITH THE PATIENT'S MEDICATION LIST. DUE TO THE PATIENT DOING WELL FROM THE INJECTION I WOULD LIKE HER TO RETURN IN 2 MONTHS. PATIENT WAS ADVISED TO CALL IF THE PAIN SIGNIFICANTLY WORSENS BEFORE THE NEXT APPOINTMENT. INSTRUCTIONS WERE GIVEN, QUESTIONS WERE ANSWERED, PATIENT REPORTS UNDERSTANDING AND AGREES WITH THE PLAN. I, DEMARCUS ZHENG, DOCUMENTED THE ABOVE INFORMATION ACTING A SCRIBE FOR DR. MURPHY. I HAVE REVIEWED THE ABOVE DOCUMENT, WRITTEN BY DEMARCUS LOYA AND I VERIFY THAT IT IS ACCURATE. SACROILIITIS, NOT ELSEWHERE CLASSIFIED REFILL LIDOCAINE PATCH, 5 %, 1 TO 2 PATCH TO INTACT SKIN REMOVE AFTER 12 HOURS, EXTERNALLY, ONCE A DAY ON 12H OFF 12H, 30 DAY(S), 25, REFILLS 2 REFILL CYMBALTA CAPSULE DELAYED RELEASE PARTICLES, 60 MG, 1 CAPSULE, ORALLY, ONCE A DAY, 30 DAY(S), 30 CAPSULE, REFILLS 2 REFILL HYDROCODONE-ACETAMINOPHEN TABLET, 5-325 MG, 1 TABLET NEEDED, ORALLY, EVERY 6 HRS MDD2, 30 DAY(S), 30, REFILLS 0 PROCEDURES PN WORKMANS' COMP OPINION IN YOUR OPINION, WAS THE INCIDENT THAT THE PATIENT DESCRIBED THE COMPETENT MEDICAL CAUSE OF THIS INJURY/ILLNESS? YES ARE THE PATIENT'S COMPLAINTS CONSISTENT WITH HIS/HER HISTORY OF THE INJURY/ILLNESS? YES IS THE PATIENT'S HISTORY OF THE INJURY/ILLNESS CONSISTENT WITH YOUR OBJECTIVE FINDING? YES WHAT IS THE PERCENTAGE OF TEMPORARY IMPAIRMENT? MODERATE TO MARKED = 66.7% IS THE PATIENT WORKING? NO DOCTOR ON SITE: VALE EVERETT MD PROCEDURE CODES FA211 ESTABILISHED PATIENT [facility] FACILITY CHARGE G8427 DOC MEDS VERIFIED W/PT OR RE G8730 PAIN ASSESS POS TOOL F/U PLAN DOC DISPOSITION & COMMUNICATION FOLLOW UP 3 WEEKS ELECTRONICALLY SIGNED BY VALE MURPHY MD ON 05/06/2017 AT 08:09 PM EDT DISCLAIMER : THIS IS A VISIT SUMMARY EXTRACTED FROM THE [employer] CHART. IT IS NOT A COPY OF THE [employer] PROGRESS NOTE. JANE
== END ==
LOC: M PAIN 09:00
PROVIDERS: ATTEND Anesthesiology
DX: G89.29 Other chronic pain (principal); M51.16 Intervertebral disc disorders with radiculopathy, lumbar region; M46.1 Sacroiliitis, not elsewhere classified; M51.17 Intervertebral disc disorders with radiculopathy, lumbosacral region; M32.9 Systemic lupus erythematosus, unspecified; Z79.52 Long term (current) use of systemic steroids; Z79.899 Other long term (current) drug therapy

== ENCOUNTER → 2017-06-21 | Outpatient (CLI) | payer OTHER ==
--- NOTE | 2017-07-03 01:45 | ECWPNPC ---
PATIENT NAME: JOHNNY WEATHERS : 1960 GENDER: FEMALE VISIT DATE: 06/21/2017 DISCHARGE DATE: 06/21/17 1029 VISIT LOCKED DATE TIME: PHYSICIAN: VALE MURPHY RESOURCE: VALE MURPHY REASON FOR APPOINTMENT 1. W/C BACK PAIN HISTORY OF PRESENT ILLNESS HISTORY OF PRESENT ILLNESS: PAIN THE PATIENT DESCRIBES THE PAIN... 56 YEAR OLD FEMALE PATIENT WITH HISTORY OF CHRONIC LOW BACK PAIN. PATIENT DESCRIBES THE PAIN ACHING, TENDER, SORE, WITH THE PAIN COMING AND GOING WITH FA PAIN SCORE OF 5/10. PATIENT RECEIVED A LUMBAR EPIDURAL ON 04/03/17 AND REPORTS HAVING OVER 50% RELIEF FROM THE INJECTION SINCE THE INJECTION WITH INCREASED MOBILITY AND FUNCTIONALITY. MRS. WEATHERS WAS ABLE TO REDUCE THE USE OF MEDICATIONS FROM THE INJECTION. AT THIS TIME THE PATIENT REPORTS THE PAIN IS STARTING TO RETURN BUT IS STILL VERY MANAGEABLE PATIENT REPORTS USING LESS MEDICATIONS DUE TO THE PAIN RELIEF. 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 PATIENT REPORTS THAT SHE HAS TRIED PHYSICAL THERAPY IN THE PAST AND IT HELPED A LITTLE BIT WITH THE PAIN. PATIENT DENIES HAVING ANY BACK SURGERIES. PATIENT REPORTS THAT STRETCHES IN THE MORNING AND HER CURRENT MEDICATION REGIMEN WITH INJECTION HELP TO MANAGE HER PAIN. PATIENT REPORTS OF SITTING TOO LONG AND WALKING FOR A LONG PERIOD OF TIME DOES INCREASE HER PAIN. PATIENT STATES THAT SOME NIGHT SHE HAS DIFFICULTIES SLEEPING AND STAYING ASLEEP AT NIGHT. PATIENT DENIES UNEXPLAINABLE WEIGHT LOSS, FEVER, CHILLS, NEW CHANGES ON HIS/HER URINARY OR BOWEL CONTROL. FALL RISK SCREENING: SCREENING :NO FALLS IN THE PAST YEAR CURRENT MEDICATIONS NOT-TAKING BUPROPION HCL 300 MG TABLET 1 TABLET ORALLY ONCE A DAY UNKNOWN PROTONIX 40 MG TABLET DELAYED RELEASE 1 TABLET ORALLY ONCE A DAY UNKNOWN VITAMIN B COMPLEX TABLET ORALLY DAILY UNKNOWN OMEGA 3 1000 MG CAPSULE 1 CAPSULE ORALLY ONCE A DAY UNKNOWN VITAMIN C 1000 MG TABLET 1 TABLET ORALLY ONCE A DAY UNKNOWN PREDNISOLONE 5 MG TABLET ORALLY DAILY UNKNOWN ALPRAZOLAM 0.25 MG TABLET 1 TABLET ORALLY PRN DAILY UNKNOWN LIDOCAINE 5 % PATCH 1 TO 2 PATCH TO INTACT SKIN REMOVE AFTER 12 HOURS EXTERNALLY ONCE A DAY ON 12H OFF 12H UNKNOWN HYDROCODONE-ACETAMINOPHEN 5-325 MG TABLET 1 TABLET NEEDED ORALLY EVERY 6 HRS MDD2 UNKNOWN CYMBALTA 60 MG CAPSULE DELAYED RELEASE PARTICLES 1 CAPSULE ORALLY ONCE A DAY UNKNOWN TURMERIC CURCUMIN CAPSULE 1000 MG ORALLY DAILY UNKNOWN TUMERSAID 1000 MG TABLET 1 TAB(S) ORALLY DAILY MEDICATION LIST REVIEWED AND RECONCILED WITH THE PATIENT PAST MEDICAL HISTORY 2003 FALL RESULTING IN BACK AND RIGHT LEG PAIN LUPUS ALLERGIES NO[ALLERGIES VERIFIED] REVIEW OF SYSTEMS REVIEWED BY: PROVIDER: VALE MURPHY MD . CONSTITUTIONAL: ANY CHANGE IN YOUR MEDICAL CONDITION? NO . CHILLS NO . FEVER NO . INFECTION: DO YOU HAVE NEW INFECTIONS? SINCE LAST VISIT AND BELIEVES SHE HAS ONE AGAINYES BLADDER INFECTION . DO YOU HAVE HISTORY OF MRSA? NO . MUSCULOSKELETAL: ANY NEW PATTERNS OF PAIN OR NUMBNESS? NO . GASTROENTEROLOGY: ANY NEW CHANGE IN BOWEL CONTROL? NO . GENITOURINARY: ANY NEW CHANGE IN BLADDER CONTROL? NO . IS THERE A CHANCE YOU COULD BE ? NO . HEMATOLOGY/LYMPH: DO YOU TAKE ANY BLOOD THINNERS? (FOR EXAMPLE- COUMADIN, PLAVIX, AGGRENOX, PLATEL, PRADAXA, OR XARELTO) NO . WHEN WAS YOUR LAST DOSE? DATE: TIME: . NEUROLOGY: HAVE YOU FALLEN IN THE PAST 6 MONTHS? NO . ANY NEW EXTREMITY NUMBNESS OR WEAKNESS? NO . CARDIOLOGY: DO YOU HAVE A PACEMAKER OR DEFIBRILLATOR? NO . RESPIRATORY: HAVE YOU BEEN SICK IN THE PAST WEEK? NO . FEVER NO . FLU LIKE SYMPTOMS? NO . COUGH NO . INTEGUMENTARY: DO YOU HAVE ANY RASHES OR OPEN SORES? NO . ALLERGIC/IMMUNO: ARE YOU ALLERGIC TO SHELLFISH OR IV DYE? NO . ANY NEW ALLERGIES? NO . PSYCHIATRIC: DO YOU HAVE THOUGHTS OF HURTING YOURSELF OR SOMEONE ELSE? NO . ARE YOU ABUSED, NEGLECTED, OR IN AN UNSAFE ENVIRONMENT? NO . ENDOCRINOLOGY: ARE YOU DIABETIC? NO . OTHER: DO YOU NEED ANY PRESCRIPTIONS? NO . IF YES, PLEASE LIST: ____ . ANY NEW PROBLEMS WITH YOUR MEDICATIONS? NO . WHEN DID YOU LAST EAT? ____ . WHEN DID YOU LAST DRINK? ____ . WHAT DID YOU LAST DRINK? ____ . NAME OF PERSON DRIVING YOU HOME? ____ . DO YOU HAVE ANY OTHER QUESTIONS OR CONCERNS NO . VITAL SIGNS WT 143 LBS, HT 62 IN, BMI 26.15 INDEX, BP 110/54 MM HG, HR 66 /MIN, RR 16 /MIN, TEMP 97.6 F, OXYGEN SAT % 94, SAFE IN ENV? (Y/N) YES, REVIEWED BY: KG. EXAMINATION : PATIENT IS ALERT O X 3 AND COOPERATIVE. PATIENT IS ABLE TO FLEX HER BACK TO 80 DEGREES AND EXTEND TO 50 DEGREES WITH DIFFICULTIES. THERE IS TENDERNESS IN THE LOW BACK PARASPINAL MUSCLE GROUP NEAR THE SACROILIAC AREA. THERE IS VERY SUBTLE WEAKNESS IN THE RIGHT LEG. STRAIGHT LEG RAISING OF THE RIGHT LEG IS POSITIVE FOR PAIN AT 50 DEGREES. FABERE TEST IS POSITIVE ON THE RIGHT LEG. MRI OF THE LUMBAR SPINE DONE ON 01/13/2016 SHOWS MILD BULGING AND STENOSIS AT MULTIPLE LEVELS. ASSESSMENTS INTERVERTEBRAL DISC DISORDER WITH RADICULOPATHY OF LUMBAR REGION - M51.16 (PRIMARY) SACROILIITIS, NOT ELSEWHERE CLASSIFIED - M46.1 INTERVERTEBRAL DISC DISORDER WITH RADICULOPATHY OF LUMBOSACRAL REGION - M51.17 TREATMENT INTERVERTEBRAL DISC DISORDER WITH RADICULOPATHY OF LUMBAR REGION NOTES: WE DISCUSSED SEVERAL ISSUES WITH MRS. WEATHERS'S PAIN MANAGEMENT CASE. AT THIS TIME THE PATIENT WILL CONTINUE TO USE LIDOCAINE PATCHES FOR THE NEUROPATHIC PAIN WELL CYMBALTA AND HYDROCODONE FOR THE SOMATIC PAIN. PATIENT WILL RECEIVE AN INCREASE IN THE HYDROCODONE DUE TO MOVING BUT THE PATIENT IS AWARE THAT THE MEDICATION WILL BE REDUCED FOR THE NEXT REFILL. REVIEWED WITH PATIENT THE POTENTIAL RISK OF INCREASED SEDATION, RESPIRATORY SUPPRESSION AND WITH THE COMBINATION OF BENZODIAZEPINE AND OPIOID MEDICATIONS. PATIENT STATES SHE UNDERSTANDS THIS RISK AND WISHES TO CONTINUE WITH THERAPY. PATIENT DENIES ABUSE OF ANY MEDICATION, DENIES USE OF ILLEGAL SUBSTANCES, AND STATES SHE IS ONLY USING THE MEDICATION FOR PAIN MANAGEMENT. ISTOP REVIEWED [id number]. PATIENT WAS NOTIFIED TO SET UP A PLAN WITH THE BELL SPINNER SOUSAPHONES BEFORE LEAVING FOR MEDICATION REFILLS. INSTRUCTIONS WERE GIVEN, QUESTIONS WERE ANSWERED, PATIENT REPORTS UNDERSTANDING AND AGREES WITH THE PLAN. I, DEMARCUS ZHENG, DOCUMENTED THE ABOVE INFORMATION ACTING A SCRIBE FOR DR. MURPHY. I HAVE REVIEWED THE ABOVE DOCUMENT, WRITTEN BY DEMARCUS LOYA AND I VERIFY THAT IT IS ACCURATE. SACROILIITIS, NOT ELSEWHERE CLASSIFIED CONTINUE HYDROCODONE-ACETAMINOPHEN TABLET, 5-325 MG, 1 TABLET NEEDED, ORALLY, EVERY 6 HRS MDD3, 30 DAY(S), 85, REFILLS 0 REFILL CYMBALTA CAPSULE DELAYED RELEASE PARTICLES, 60 MG, 1 CAPSULE, ORALLY, ONCE A DAY, 90 DAY(S), 90 CAPSULE, REFILLS 1 PROCEDURES PN WORKMANS' COMP OPINION IN YOUR OPINION, WAS THE INCIDENT THAT THE PATIENT DESCRIBED THE COMPETENT MEDICAL CAUSE OF THIS INJURY/ILLNESS? YES ARE THE PATIENT'S COMPLAINTS CONSISTENT WITH HIS/HER HISTORY OF THE INJURY/ILLNESS? YES IS THE PATIENT'S HISTORY OF THE INJURY/ILLNESS CONSISTENT WITH YOUR OBJECTIVE FINDING? YES WHAT IS THE PERCENTAGE OF TEMPORARY IMPAIRMENT? MODERATE TO MARKED = 66.7% IS THE PATIENT WORKING? NO DOCTOR ON SITE: VALE EVERETT MD PROCEDURE CODES FA211 ESTABILISHED PATIENT [facility] FACILITY CHARGE G8427 DOC MEDS VERIFIED W/PT OR RE G8730 PAIN ASSESS POS TOOL F/U PLAN DOC DISPOSITION & COMMUNICATION FOLLOW UP 4 MONTHS ELECTRONICALLY SIGNED BY VALE MURPHY MD ON 07/01/2017 AT 03:03 PM EDT DISCLAIMER : THIS IS A VISIT SUMMARY EXTRACTED FROM THE [employer] CHART. IT IS NOT A COPY OF THE [employer] PROGRESS NOTE. JANE
== END ==
LOC: M PAIN 09:15
PROVIDERS: ATTEND Anesthesiology
DX: G89.29 Other chronic pain (principal); M51.16 Intervertebral disc disorders with radiculopathy, lumbar region; M46.1 Sacroiliitis, not elsewhere classified; M51.17 Intervertebral disc disorders with radiculopathy, lumbosacral region; Z79.899 Other long term (current) drug therapy

== ENCOUNTER → 2018-04-09 | Outpatient (CLI) | payer OTHER | LOC: M PAIN 08:30 | DX: M46.1 Sacroiliitis, not elsewhere classified (principal); G89.29 Other chronic pain; F32.9 Major depressive disorder, single episode, unspecified; F41.9 Anxiety disorder, unspecified; K21.9 Gastro-esophageal reflux disease without esophagitis; Z79.899 Other long term (current) drug therapy; Z87.891 Personal history of nicotine dependence; Z87.39 Personal history of other diseases of the musculoskeletal system and connective tissue | CPT/HCPCS: G0463 ==

== ENCOUNTER → 2018-07-10 | Outpatient (CLI) | payer OTHER | LOC: M PAIN 08:30 | DX: M46.1 Sacroiliitis, not elsewhere classified (principal); M32.9 Systemic lupus erythematosus, unspecified; F32.9 Major depressive disorder, single episode, unspecified; F41.9 Anxiety disorder, unspecified; K21.9 Gastro-esophageal reflux disease without esophagitis; Z87.891 Personal history of nicotine dependence; Z79.899 Other long term (current) drug therapy | CPT/HCPCS: G0463 ==